=== PATIENT | male | born 1980 | race Caucasian/White ===

== ENCOUNTER 2018-07-14 07:58 | Outpatient (CLI) ==
[2013-07-15 09:01] VITALS: BMI 21.2
--- NOTE | 2018-07-14 10:25 | DI ---
EXAM: Two views of the chest. History: Lightheaded Comparison: Chest radiograph 07/15/2013 Findings: Heart size is normal. No focal consolidation. No appreciable pleural fluid and no pneumo thorax. Stable nodular density within the left upper lung is probably due to rib shadow. Impression: No acute cardiopulmonary process
--- NOTE | 2018-07-14 11:20 | DI ---
EXAM: Three views of the cervical spine. History: Paresthesia of the upper extremities. Findings: No acute fracture or subluxation of the cervical spine. No prevertebral soft tissue swell ing. Predental space is not widened. Mild multilevel disc space narrowing with a few small anterior osteophytes. Prominent facet hypertrophy at C3-4 on the right. Impression: 1. No acute osseous abnormality. 2. Mild degenerative disc disease. If symptoms persist, recommend further evaluation with MRI of th e cervical spine.
== END 2018-07-14 07:59 | disposition home or self-care (01) ==
LOC: RAD 07:58
PROVIDERS: ATTEND Physician Assistant
DX: R42 Dizziness and giddiness (principal); R20.2 Paresthesia of skin
CPT/HCPCS: 93005; 93010